=== PATIENT | female | born 1965 | race Caucasian/White ===

== ENCOUNTER 2019-01-26 07:31 | Emergency (ER) | payer BC ==
--- NOTE | 2019-01-26 07:58 | EDM.PDOC ---
ED HPI GENERAL MEDICAL PROBLEM - General Chief Complaint: Abdominal Pain Stated Complaint: VOMITING CANER PATIENT Time Seen by Provider: 01/26/19 07:31 Source of Information: Reports: Patient, EMS, Family History Limitations: Reports: No Limitations - History of Present Illness INITIAL COMMENTS - FREE TEXT/NARRATIVE: 53-year-old female with metastatic pancreatic cancer who is here visiting for the weekend and developed intense nausea and vomiting and increased abdominal pain overnight. She was doing okay until 2 AM when she woke up with pain in intense vomiting. She called the ambulance this morning and arrived at 7:30 AM. No fevers or chills, denies shortness of breath, no abdominal distention. She has had periods of pain similar to this in the past but not as much nausea and vomiting. She is scheduled to have a trial treatment protocol at [facility] next week. She is also scheduled for a nerve block for pain control at [facility] in 3 days. Bowels are moving. No urinary symptoms. Onset: Sudden (Symptoms escalated rather suddenly 6 hours ago) Duration: Hour(s): (6 hours) Location: Reports: Abdomen Quality: Reports: Sharp, Stabbing Worsens with: Reports: Other (Vomiting), Movement Associated Symptoms: Reports: Loss of Appetite, Nausea/Vomiting, Weakness. Denies: Chest Pain, Cough, Diaphoresis, Fever/Chills, Shortness of Breath Treatments COMMERCIAL CENSUS TAKER: Reports: Other Medication(s) Other Treatments COMMERCIAL CENSUS TAKER: Zofran 4 mg Fentenny 50mg per EMS Abdominal Pain Score (Numeric/FACES): 5 - Related Data Allergies Allergy/AdvReac Type Severity Reaction Status Date / Time Penicillins Allergy Rash Verified 01/26/19 07:37 Home Meds: Home Meds Hydrocodone/Acetaminophen [Hydrocodon-Acetaminophen 5-325] 1 tab PO Q4H PRN [History] Ondansetron [Zofran ODT] 1 tab PO Q6H PRN 01/26/19 [History] PARoxetine [Paxil] 40 mg PO DAILY 01/26/19 [History] Zolpidem Tartrate [Ambien] 10 mg PO BEDTIME PRN 01/26/19 [History] Past Medical History HEENT History: Reports: Impaired Vision 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 Denies: Fever HEENT: Reports: No Symptoms Respiratory: Denies: Shortness of Breath Cardiovascular: Denies: Chest Pain GI/Abdominal: Reports: Abdominal Pain, Decreased Appetite, Nausea, Vomiting. Denies: Constipation, Diarrhea : Reports: No Symptoms Skin: Reports: No Symptoms Neurological: Reports: Weakness. Denies: Headache ED EXAM, GENERAL - Physical Exam Exam: See Below Exam Limited By: No Limitations General Appearance: Alert, Mild Distress (Patient is very uncomfortable, received 50 g of fentanyl and 4 mg of Zofran in route which helped somewhat) Eye Exam: Bilateral Eye: Normal Inspection (Good hydration, no jaundice) Respiratory/Chest: No Respiratory Distress, Lungs Clear Cardiovascular: Regular Rate, Rhythm. No: Tachycardia GI/Abdominal: Normal Bowel Sounds, Tender (Diffusely tender to palpation with mild guarding, no distention) Extremities: Normal Inspection. No: Pedal Edema Neurological: Alert, Oriented Psychiatric: Depressed Mood, Flat Affect Skin Exam: Warm, Dry Course - Vital Signs Last Recorded V/S: Last Vital Signs Temp 96.0 F 01/26/19 07:47 Pulse 74 01/26/19 07:47 Resp 17 01/26/19 07:47 BP 136/76 01/26/19 08:24 Pulse Ox 100 01/26/19 07:47 - Orders/Labs/Meds Meds: Medications Discontinued Medications Generic Name Dose Route Start Last Admin Trade Name Freq PRN Reason Stop Dose Admin Fentanyl 100 mcg 01/26/19 07:46 01/26/19 08:01 Sublimaze IVPUSH 01/26/19 07:47 100 mcg ONETIME ONE Administration Lactated Ringer's 1,000 mls @ 500 mls/hr 01/26/19 08:15 01/26/19 08:11 Ringers, Lactated IV 500 mls/hr ASDIRECTED [place] Administration Ondansetron HCl 4 mg 01/26/19 07:46 01/26/19 08:00 Zofran IVPUSH 01/26/19 07:47 4 mg ONETIME ONE Administration - Re-Assessments/Exams Free Text/Narrative Re-Assessment/Exam: 01/26/19 08:04 Fluids were continued, the patient was given an additional 100 g of fentanyl and 4 mg of IV Zofran. The arrived and was anxious to get her to [place] where her oncologist and primary physicians are. I talked to Dr. Fuentes in the emergency room, he kindly accepted transfer of the patient without any further workup at this time. She is physically stable, just very uncomfortable. Departure - Departure Time of Disposition: 09:29 Disposition: DC/Tfer to Other Clinical Impression: Pancreatic cancer metastasized to liver Nausea and vomiting Qualifiers: Vomiting type: bilious vomiting Qualified Code(s): R11.14 - Bilious vomiting Abdominal pain Qualifiers: Abdominal location: generalized Qualified Code(s): R10.84 - Generalized abdominal pain - Discharge Information Referrals: Jasmin Peters MD [Primary Care Provider] - Forms: ED Department Discharge Care Plan Goals: Patient will be transferred by ambulance to [facility] for gastroenterology , oncology evaluation, symptom control and further workup if needed. Patient and are in agreement with the plan.
[2019-01-26] MEDS: Ondansetron 4 MG/2 ML SDV IVPUSH ONE (08:00)
[2019-01-26] MEDS: fentaNYL 100 MCG/2 ML SDV IVPUSH ONE (08:01)
[2019-01-26] MEDS: Lactated Ringers 1,000 ML IV SCH (08:11)
== END 2019-01-26 09:29 | disposition other institution (70) ==
LOC: JP.ED 07:31
DX: C22.8 Malignant neoplasm of liver, primary, unspecified as to type (principal); C78.7 Secondary malignant neoplasm of liver and intrahepatic bile duct; R11.14 Bilious vomiting; Z88.0 Allergy status to penicillin
CPT/HCPCS: 96361; 96374; 96375; 99284; J2405; J3010; J7120

== ENCOUNTER 2019-01-31 09:05 | Emergency (ER) | payer BC ==
[2019-01-31] MEDS ORDERED: fentaNYL 100 MCG/2 ML SDV IVPUSH ONE (09:38)
[2019-01-31] MEDS ORDERED: Ketamine 500 MG/5 ML MDV IV ONE (09:39)
[2019-01-31] MEDS ORDERED: Sodium Chloride 0.9% 10 ML Syringe FLUSH PRN (09:39)
--- NOTE | 2019-01-31 09:42 | EDM.PDOC ---
ED HPI GENERAL MEDICAL PROBLEM - General Chief Complaint: Abdominal Pain Stated Complaint: cancer patient Time Seen by Provider: 01/31/19 09:21 Source of Information: Reports: Patient, Family, Old Records, RN Notes Reviewed History Limitations: Reports: No Limitations - History of Present Illness INITIAL COMMENTS - FREE TEXT/NARRATIVE: 53-year-old female presents emergency department today complaint of abdominal pain, she is known history of pancreatic cancer with metastases to the liver has been using hydrocodone for pain control unfortunately she had reached the max dose of the 7.5/325 was in the emergency department on January 26 for nausea vomiting abdominal pain was transferred to [place] for further evaluation. Per her oncologist she was set up for nerve block with interventional radiology which is scheduled for February 02 pain medication was switched to fentanyl patch 25 g in combination with 2 mg of Dilaudid Q4 hours. However as she feels the pain medication that she is currently on is not providing good relief for her. Was given fentanyl IV in the emergency department last visit which provided good relief. States her nausea is in good control no shortness of breath or chest pain. 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 chemo since May, now completed since few weeks ago. Plans to begin trial treatment through [facility] next week. - Infectious Disease History Infectious Disease History: Reports: Chicken Pox - Past Surgical History HEENT Surgical History: Reports: None GI Surgical History: Reports: Colonoscopy, Other (See Below) Other GI Surgeries/Procedures: pancreatic CA with mets to liver Apr 2018 Social & Family History - Tobacco Use Smoking Status *Q: Current Every Day Smoker Years of Tobacco use: 30 Packs/Tins Daily: 0.5 - Caffeine Use Caffeine Use: Reports: Coffee - Recreational Drug Use Recreational Drug Use: No ED ROS GENERAL - Review of Systems Review Of Systems: See Below Constitutional: Reports: Fatigue. Denies: Fever, Chills HEENT: Reports: No Symptoms Respiratory: Reports: No Symptoms Cardiovascular: Reports: No Symptoms GI/Abdominal: Reports: Abdominal Pain. Denies: Nausea, Vomiting : Reports: No Symptoms ED EXAM, GENERAL - Physical Exam Exam: See Below Exam Limited By: No Limitations General Appearance: Alert, WD/WN, No Apparent Distress Respiratory/Chest: No Respiratory Distress GI/Abdominal: Soft, Tender (Generalized tenderness) Course - Vital Signs Last Recorded V/S: Last Vital Signs Temp 96.4 F 01/31/19 09:26 Pulse 88 01/31/19 09:26 Resp 16 01/31/19 10:52 BP 145/77 H 01/31/19 10:52 Pulse Ox 94 L 01/31/19 10:52 - Orders/Labs/Meds Orders: Active Orders 24 hr Category Date Time Status Peripheral IV Care [RC] . DIRECTED Care 01/31/19 09:39 Active Sodium Chloride 0.9% [Saline Flush] Med 01/31/19 09:39 Active 10 ml FLUSH ASDIRECTED PRN Peripheral IV Insertion Adult [OM.PC] Urgent Oth 01/31/19 09:39 Ordered Medication Orders Sodium Chloride (Saline Flush) 10 ml FLUSH ASDIRECTED PRN PRN Reason: Keep Vein Open Last Admin: 01/31/19 09:51 Dose: 10 ml Meds: Medications Generic Name Dose Route Start Last Admin Trade Name Freq PRN Reason Stop Dose Admin Sodium Chloride 10 ml 01/31/19 09:39 01/31/19 09:51 Saline Flush FLUSH 10 ml ASDIRECTED PRN Administration Keep Vein Open Discontinued Medications Generic Name Dose Route Start Last Admin Trade Name Freq PRN Reason Stop Dose Admin Fentanyl 100 mcg 01/31/19 09:38 01/31/19 09:51 Sublimaze IVPUSH 01/31/19 09:39 100 mcg ONETIME ONE Administration Ketamine HCl 20 mg 01/31/19 09:39 01/31/19 09:57 Ketalar IV 01/31/19 09:40 20 mg ONETIME ONE Administration Lorazepam 0.5 mg 01/31/19 10:15 01/31/19 10:34 Ativan IVPUSH 01/31/19 10:16 0.5 mg ONETIME ONE Administration Departure - Departure Time of Disposition: 11:03 Disposition: Home, Self-Care 01 Condition: Poor Clinical Impression: Pancreatic cancer metastasized to liver Abdominal pain Qualifiers: Abdominal location: generalized Qualified Code(s): R10.84 - Generalized abdominal pain - Discharge Information Referrals: PCP,None [Primary Care Provider] - Forms: ED Department Discharge Additional Instructions: Continue with the fentanyl patch, stop the Dilaudid for now, start the hydrocodone 10/325 one tablet every 6 hours as needed follow-up with your interventional radiologist on Saturday, call or return to the emergency department worsening of symptoms - My Orders Last 24 Hours: My Active Orders 01/31/19 09:39 Peripheral IV Care [RC] . DIRECTED Sodium Chloride 0.9% [Saline Flush] 10 ml FLUSH ASDIRECTED PRN Peripheral IV Insertion Adult [OM.PC] Urgent - Assessment/Plan Last 24 Hours: My Active Orders 01/31/19 09:39 Peripheral IV Care [RC] . DIRECTED Sodium Chloride 0.9% [Saline Flush] 10 ml FLUSH ASDIRECTED PRN Peripheral IV Insertion Adult [OM.PC] Urgent Plan: Assessment Acuity = acute Site and laterality = pancreatic cancer with metastases Etiology = unknown Manifestations = abdominal pain, nausea vomiting Location of injury = Home Lab values = none Plan Had good improvement with pain relief 100 g fentanyl 20 mg ketamine as well as 0.5 mg Ativan all IV, plan is to stop the Dilaudid continue with the fentanyl patch switched to the hydrocodone 10/325 one tablet every 6 hours as needed total #20 she'll follow up with interventional radiology on Saturday for nerve block This note was dictated using [employer] voice recognition software please call with any questions on syntax or grammar.
[2019-01-31] MEDS ORDERED: LORazepam 2 MG/ML SDV IVPUSH ONE (10:15)
== END 2019-01-31 11:20 | disposition home or self-care (01) ==
LOC: JP.ED 09:05
DX: C25.9 Malignant neoplasm of pancreas, unspecified (principal); C78.7 Secondary malignant neoplasm of liver and intrahepatic bile duct; F41.9 Anxiety disorder, unspecified; F32.9 Major depressive disorder, single episode, unspecified; F17.210 Nicotine dependence, cigarettes, uncomplicated; Z88.0 Allergy status to penicillin; Z79.899 Other long term (current) drug therapy
CPT/HCPCS: 96374; 96375; 99283; J2060; J3010

== ENCOUNTER 2019-03-15 00:25 | Emergency (ER) | payer BC ==
--- NOTE | 2019-03-15 00:40 | EDM.PDOC ---
ED HPI GENERAL MEDICAL PROBLEM - General Chief Complaint: General Stated Complaint: THROWING UP Time Seen by Provider: 03/15/19 00:40 Source of Information: Reports: Patient History Limitations: Reports: No Limitations - History of Present Illness INITIAL COMMENTS - FREE TEXT/NARRATIVE: pt has stage4 pancreatic ca. She has been vomiting all afternoon. She was not able to get her pain meds in and hold them down this pm. Onset: Today Duration: Hour(s): Location: Reports: Abdomen, Other (pt has known pancreatic ca. ) Quality: Reports: Sharp Associated Symptoms: Reports: Nausea/Vomiting, Other ( severe pain. 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 chemo since May, now completed since few weeks ago. Plans to begin trial treatment through [facility] next week. - Infectious Disease History Infectious Disease History: Reports: Chicken Pox - Past Surgical History HEENT Surgical History: Reports: None GI Surgical History: Reports: Colonoscopy, Other (See Below) Other GI Surgeries/Procedures: pancreatic CA with mets to liver Apr 2018 Social & Family History - Caffeine Use Caffeine Use: Reports: Coffee ED ROS GENERAL - Review of Systems Review Of Systems: See Below Constitutional: Reports: Weakness, Other ( severe pain) HEENT: Reports: No Symptoms Respiratory: Reports: No Symptoms Cardiovascular: Reports: No Symptoms Endocrine: Reports: No Symptoms GI/Abdominal: Reports: Abdominal Pain, Other (history of pancreatic ca. ) : Reports: No Symptoms Musculoskeletal: Reports: No Symptoms Skin: Reports: No Symptoms Neurological: Reports: No Symptoms Psychiatric: Reports: Anxiety ED EXAM, GENERAL - Physical Exam Exam: See Below Free Text/Narrative:: pt arrived with severe pain. She has not been able to hold her oral morphine down. She has not eaten anything for the past 2 days. [place] with her family. After some discussion with her and her it was noted that she was on hospice. They did not call hospice prior to coming to the ER. She had lab work ordered and done before I was aware that she was a hospice pt. Exam Limited By: No Limitations General Appearance: Alert, Anxious, Severe Distress, Other (pt has stage 4 pancreatic CA, ) Ears: Normal TMs Nose: Normal Inspection Throat/Mouth: Normal Inspection Head: Atraumatic Neck: Normal Inspection Respiratory/Chest: No Respiratory Distress Cardiovascular: Regular Rate, Rhythm GI/Abdominal: Other ( tender in the epigastric and mid abdoman. She is not distended. ) (Female) Exam: Deferred Rectal (Female) Exam: Deferred Back Exam: Normal Inspection Extremities: Normal Inspection Neurological: Alert, Oriented, Normal Cognition Psychiatric: Anxious, Other (pt is very uncomfortable. ) Course - Vital Signs Last Recorded V/S: Last Vital Signs Temp 35.6 C 03/15/19 00:43 Pulse 113 H 03/15/19 00:43 Resp 18 03/15/19 00:43 BP 118/86 03/15/19 00:43 Pulse Ox 93 L 03/15/19 00:43 - Orders/Labs/Meds Labs: Laboratory Tests 03/15/19 03/15/19 03/15/19 Range/Units 00:52 00:52 00:52 WBC 9.9 (4.5-11.0) K/uL RBC 5.28 (3.30-5.50) M/uL Hgb 16.8 H (12.0-15.0) g/dL Hct 50.5 H (36.0-48.0) % MCV 96 (80-98) fL MCH 32 H (27-31) pg MCHC 33 (32-36) % Plt Count 230 (150-400) K/uL Neut % (Auto) 77 H (36-66) % Lymph % (Auto) 14 L (24-44) % [place] % (Auto) 8 H (2-6) % Eos % (Auto) 0 L (2-4) % Baso % (Auto) 1 (0-1) % Sodium 131 L (140-148) mmol/L Potassium 4.2 (3.6-5.2) mmol/L Chloride 91 L (100-108) mmol/L Carbon Dioxide 21 (21-32) mmol/L Anion Gap 23.2 H (5.0-14.0) mmol/L BUN 17 (7-18) mg/dL Creatinine 0.7 (0.6-1.0) mg/dL Est Cr Clr Drug Dosing TNP Estimated GFR (MDRD) > 60 (>60) Glucose 114 H (74-106) mg/dL Calcium 9.1 (8.5-10.1) mg/dL Total Bilirubin 2.3 H (0.2-1.0) mg/dL AST 55 H (15-37) U/L ALT 61 (12-78) U/L Alkaline Phosphatase 625 H (46-116) U/L Total Protein 7.7 (6.4-8.2) g/dL Albumin 3.0 L (3.4-5.0) g/dL Globulin 4.7 H (2.3-3.5) g/dL Albumin/Globulin Ratio 0.6 L (1.2-2.2) Amylase 15 L (25-115) U/L Lipase 62 L (73-393) U/L Meds: Medications Discontinued Medications Generic Name Dose Route Start Last Admin Trade Name Freq PRN Reason Stop Dose Admin Hydromorphone HCl 1 mg 03/15/19 01:37 03/15/19 01:45 Dilaudid IVPUSH 03/15/19 01:38 1 mg ONETIME ONE Administration Hydromorphone HCl 1 mg 03/15/19 02:20 03/15/19 03:02 Dilaudid IVPUSH 03/15/19 02:21 1 mg ONETIME ONE Administration Sodium Chloride 1,000 mls @ 999 mls/hr 03/15/19 01:00 03/15/19 01:15 Normal Saline IV 999 mls/hr ASDIRECTED [place] Administration Sodium Chloride 1,000 mls @ 999 mls/hr 03/15/19 01:45 03/15/19 02:08 Normal Saline IV 999 mls/hr ASDIRECTED [place] Administration Morphine Sulfate 4 mg 03/15/19 00:52 03/15/19 01:15 Morphine IVPUSH 03/15/19 00:53 4 mg ONETIME ONE Administration Prochlorperazine Edisylate 10 mg 03/15/19 00:48 03/15/19 01:19 Compazine IVPUSH 03/15/19 00:49 10 mg ONETIME ONE Administration Prochlorperazine Maleate 25 mg 03/15/19 02:10 03/15/19 03:02 Compro RECTAL 03/15/19 02:11 25 mg ONETIME ONE Administration - Re-Assessments/Exams Free Text/Narrative Re-Assessment/Exam: 03/15/19 02:14 pt was given 2 liters of fluid. She was given iv compazine which helped the nausea. She did not get relief from the iv 4 mg of morphine. She was given 1 mg of dilaudid and did get relief from that. [facility] was called and she is in the palitive portion and not actual hospice. Departure - Departure Time of Disposition: 03:15 Disposition: Home, Self-Care 01 Condition: Fair Clinical Impression: Pancreatic cancer metastasized to liver, Dehydration, Inadequate pain control - Discharge Information Instructions: Pancreatic Cancer, Dehydration, Adult Referrals: Jasmin Peters MD [Primary Care Provider] - Forms: ED Department Discharge Care Plan Goals: compazine 25 mg q6h prn for nausea, use the Ms contents every 12 hours. If further problems call if further problems. Sepsis Event Note - Focused Exam Date Exam was Performed: 03/17/19 Time Exam was Performed: 07:22
[2019-03-15] MEDS ORDERED: Prochlorperazine 10 MG/2 ML SDV IVPUSH ONE (00:48)
[2019-03-15] MEDS ORDERED: Morphine 4 MG/ML Syringe IVPUSH ONE (00:52)
[2019-03-15] MEDS ORDERED: Sodium Chloride 0.9% 1,000 ML IV SCH ×2 (01:00→01:45)
[2019-03-15] MEDS ORDERED: HYDROmorphone 1 MG/ML Syringe IVPUSH ONE ×2 (01:37→02:20)
[2019-03-15] MEDS ORDERED: Prochlorperazine 25 MG Supp RECTAL ONE (02:10)
== END 2019-03-15 03:15 | disposition home or self-care (01) ==
LOC: JP.ED 00:25
DX: C25.9 Malignant neoplasm of pancreas, unspecified (principal); C78.7 Secondary malignant neoplasm of liver and intrahepatic bile duct; E86.0 Dehydration; F32.9 Major depressive disorder, single episode, unspecified; Z88.0 Allergy status to penicillin
CPT/HCPCS: 36415; 80053; 82150; 83690; 85025; 96361; 96374; 96375; 96376; 99284; A9270; J0780; J1170; J2270; J7030

== ENCOUNTER 2019-03-20 10:54 | Emergency (ER) | payer BC ==
[2019-03-20] MEDS ORDERED: HYDROmorphone 1 MG/ML Syringe IVPUSH ONE (11:24)
[2019-03-20] MEDS ORDERED: MVI, Adult with Vitamin K 10 ML, Thiamine 100 MG, Folic Acid 1 MG, Magnesium Sulfate 3 ... IV SCH ×5 (11:30)
--- NOTE | 2019-03-20 12:20 | EDM.PDOC ---
ED HPI GENERAL MEDICAL PROBLEM - General Chief Complaint: General Stated Complaint: FLUIDS Time Seen by Provider: 03/20/19 11:20 Source of Information: Reports: Patient, Family History Limitations: Reports: No Limitations - History of Present Illness INITIAL COMMENTS - FREE TEXT/NARRATIVE: 53-year-old with metastatic pancreatic cancer, on hospice who has increased abdominal pain and weakness and arrives for fluids and pain control. She is not eating well. No fevers or chills, denies shortness of breath. She had a fairly normal bowel movement 2 days ago, no urinary symptoms. Onset: Unknown/Unsure Associated Symptoms: Reports: Loss of Appetite, Malaise, Weakness Generalized Pain Score (Numeric/FACES): 6 - Related Data Allergies Allergy/AdvReac Type Severity Reaction Status Date / Time Penicillins Allergy Rash Verified 03/20/19 11:11 Home Meds: Home Meds Ondansetron [Zofran ODT] 8 mg PO Q8H PRN 01/26/19 [History] PARoxetine [Paxil] 40 mg PO DAILY 01/26/19 [History] Zolpidem Tartrate [Ambien] 10 mg PO BEDTIME PRN 01/26/19 [History] HYDROmorphone HCl [Hydromorphone HCl] 4 mg PO Q6H 03/15/19 [History] Prochlorperazine [Compazine] 1 tab PO ASDIRECTED PRN 03/20/19 [History] Scopolamine 1 patch TOP ASDIRECTED 03/20/19 [History] dexAMETHasone [Dexamethasone] 1 tab PO Q6H 03/20/19 [History] Past Medical History HEENT History: Reports: Impaired Vision 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 chemo since May-January 04. - Infectious Disease History Infectious Disease History: Reports: Chicken Pox - Past Surgical History GI Surgical History: Reports: Colonoscopy, Other (See Below) Other GI Surgeries/Procedures: pancreatic CA with mets to liver Apr 2018 Social & Family History - Tobacco Use Smoking Status *Q: Light Tobacco Smoker Years of Tobacco use: 35 Packs/Tins Daily: 0.2 - Caffeine Use Caffeine Use: Reports: Coffee - Recreational Drug Use Recreational Drug Use: No ED ROS GENERAL - Review of Systems Review Of Systems: See Below Constitutional: Reports: Malaise, Weakness, Decreased Appetite. Denies: Fever, Chills HEENT: Denies: Vision Change Respiratory: Denies: Shortness of Breath Cardiovascular: Denies: Chest Pain GI/Abdominal: Reports: Abdominal Pain, Nausea. Denies: Diarrhea, Vomiting Neurological: Reports: Weakness. Denies: Headache ED EXAM, GENERAL - Physical Exam Exam: See Below Exam Limited By: No Limitations General Appearance: Alert, No Apparent Distress, Other (Patient looks tired and uncomfortable but not distressed) Head: Atraumatic Neck: Normal Inspection Respiratory/Chest: No Respiratory Distress, Lungs Clear Cardiovascular: Regular Rate, Rhythm GI/Abdominal: Soft, Tender (Some tenderness to palpation across the upper abdomen) Extremities: No: Pedal Edema Neurological: Alert Psychiatric: Flat Affect Course - Vital Signs Last Recorded V/S: Last Vital Signs Temp 97.2 F 03/20/19 11:10 Pulse 84 03/20/19 13:01 Resp 14 03/20/19 13:01 BP 127/89 03/20/19 13:01 Pulse Ox 95 03/20/19 13:01 - Orders/Labs/Meds Meds: Medications Discontinued Medications Generic Name Dose Route Start Last Admin Trade Name Freq PRN Reason Stop Dose Admin Hydromorphone HCl 1 mg 03/20/19 11:24 03/20/19 11:45 Dilaudid IVPUSH 03/20/19 11:25 1 mg ONETIME ONE Administration Multivitamins/Minerals 10 ml/ 1,017.2 mls @ 1,000 mls/hr 03/20/19 11:30 03/20 11:55 Thiamine HCl 100 mg/ Folic IV 1,000 mls/hr Acid 1 mg/ Magnesium Sulfate 3 ASDIRECTED [place] Administration gm/ Sodium Chloride - Re-Assessments/Exams Free Text/Narrative Re-Assessment/Exam: 03/20/19 12:20 1 L banana bag was bolused, and the patient was given 1 mg of IV Dilaudid. Hospice was contacted to approve treatment. 03/20/19 12:55 Patient had some reasonable improvement after the fluids and Dilaudid and was asking to be discharged. She will be released back to the care of hospice. Departure - Departure Time of Disposition: 13:27 Disposition: Home, Self-Care Clinical Impression: Pancreatic cancer metastasized to liver, Dehydration, Inadequate pain control - Discharge Information Instructions: Dehydration, Adult Referrals: PCP,None [Primary Care Provider] - Forms: ED Department Discharge Care Plan Goals: Resume your regular medications, try to stay hydrated and increase activity as tolerated. Sepsis Event Note - Evaluation Sepsis Screening Result: No Definite Risk - Focused Exam Vital Signs: Vital Signs Temp Pulse Resp BP Pulse Ox 03/20/19 13:01 84 14 127/89 95 03/20/19 11:44 84 14 138/96 H 93 L 03/20/19 11:10 97.2 F 96 16 160/102 H 94 L 03/20/19 11:06 97.2 F 96 16 160/102 H 94 L Date Exam was Performed: 03/20/19 Time Exam was Performed: 15:40
== END 2019-03-20 13:27 | disposition home or self-care (01) ==
LOC: JP.ED 10:54
DX: C25.9 Malignant neoplasm of pancreas, unspecified (principal); C78.7 Secondary malignant neoplasm of liver and intrahepatic bile duct; E86.0 Dehydration; F32.9 Major depressive disorder, single episode, unspecified; F17.210 Nicotine dependence, cigarettes, uncomplicated; Z79.899 Other long term (current) drug therapy; Z88.0 Allergy status to penicillin
CPT/HCPCS: 96365; 96375; 99284; J1170; J3411; J3475; J7030; J3490

== ENCOUNTER 2019-03-25 11:35 | Emergency (ER) | payer BC ==
[2019-03-25] MEDS ORDERED: HYDROmorphone 1 MG/ML Syringe IVPUSH ONE (11:44)
[2019-03-25] MEDS ORDERED: MVI, Adult with Vitamin K 10 ML, Thiamine 100 MG, Folic Acid 1 MG, Magnesium Sulfate 3 ... IV SCH ×5 (11:45)
--- NOTE | 2019-03-25 11:48 | EDM.PDOC ---
ED HPI GENERAL MEDICAL PROBLEM - General Chief Complaint: General Stated Complaint: DEHYDRATED Time Seen by Provider: 03/25/19 11:45 Source of Information: Reports: Patient History Limitations: Reports: No Limitations - History of Present Illness INITIAL COMMENTS - FREE TEXT/NARRATIVE: pt has a history of stage 4 pancreatic ca. She is feeling quite dehydrated. She is not getting much down but she has not been vomiting. She is not keepiong her pain meds down. She has a scopa;amine patch and that has been helping with the nausea. She is going to get admitted to hospice. Onset: Gradual Duration: Day(s): Location: Reports: Abdomen, Other (pt has pancreatic ca stage 4. ) Associated Symptoms: Reports: Weakness, Other ( dehydration. ) Abdominal Pain Score (Numeric/FACES): 6 - Related Data Allergies Allergy/AdvReac Type Severity Reaction Status Date / Time Penicillins Allergy Rash Verified 03/20/19 11:11 Home Meds: Home Meds Ondansetron [Zofran ODT] 8 mg PO Q8H PRN 01/26/19 [History] PARoxetine [Paxil] 40 mg PO DAILY 01/26/19 [History] Zolpidem Tartrate [Ambien] 10 mg PO BEDTIME PRN 01/26/19 [History] HYDROmorphone HCl [Hydromorphone HCl] 4 mg PO Q6H 03/15/19 [History] Prochlorperazine [Compazine] 1 tab PO ASDIRECTED PRN 03/20/19 [History] Scopolamine 1 patch TOP ASDIRECTED 03/20/19 [History] dexAMETHasone [Dexamethasone] 1 tab PO Q6H 03/20/19 [History] Past Medical History HEENT History: Reports: Impaired Vision [employer] History: Reports: Psychiatric History: Reports: Depression Oncologic (Cancer) History: Reports: Pancreatic, Other (See Below) Other Oncologic History: liver mets. chemo since May-January 04. - Infectious Disease History Infectious Disease History: Reports: Chicken Pox - Past Surgical History GI Surgical History: Reports: Colonoscopy, Other (See Below) Other GI Surgeries/Procedures: pancreatic CA with mets to liver Apr 2018 Social & Family History - Caffeine Use Caffeine Use: Reports: Coffee ED ROS GENERAL - Review of Systems Review Of Systems: See Below Constitutional: Reports: Weakness, Diaphoresis, Decreased Appetite, Other (pt has stage 4 pancreatic Ca) HEENT: Reports: No Symptoms Respiratory: Reports: No Symptoms Cardiovascular: Reports: No Symptoms Endocrine: Reports: No Symptoms GI/Abdominal: Reports: Abdominal Pain, Anorexia, Decreased Appetite : Reports: No Symptoms Skin: Reports: No Symptoms Neurological: Reports: No Symptoms ED EXAM, GENERAL - Physical Exam Exam: See Below Free Text/Narrative:: pt arrived she is trying to have a Lisbeth with her family. She is here for a bolus of fluid. She is doing ok with the nausea with the patch that she has. Exam Limited By: No Limitations General Appearance: Alert, Moderate Distress, Other (pt was given Iv Dilaudid) Ears: Normal TMs Nose: Normal Inspection Throat/Mouth: Other ( dry mucous membranes) Head: Atraumatic Neck: Normal Inspection Respiratory/Chest: No Respiratory Distress Cardiovascular: Regular Rate, Rhythm GI/Abdominal: Other (pain in upper abdoman) (Female) Exam: Deferred Rectal (Female) Exam: Deferred Back Exam: Normal Inspection Extremities: Normal Inspection Neurological: Alert, Oriented, Normal Cognition Course - Vital Signs Last Recorded V/S: Last Vital Signs Temp 35.7 C 03/25/19 11:45 Pulse 95 03/25/19 11:45 Resp 16 03/25/19 11:45 BP 121/92 H 03/25/19 11:45 Pulse Ox 95 03/25/19 11:45 - Orders/Labs/Meds Meds: Medications Discontinued Medications Generic Name Dose Route Start Last Admin Trade Name Freq PRN Reason Stop Dose Admin Hydromorphone HCl 1 mg 03/25/19 11:44 03/25/19 11:52 Dilaudid IVPUSH 03/25/19 11:45 1 mg ONETIME ONE Administration Multivitamins/Minerals 10 ml/ 1,017.2 mls @ 500 mls/hr 03/25/19 12:15 12:07 Thiamine HCl 100 mg/ Folic IV 03/25/19 14:17 500 mls/hr Acid 1 mg/ Magnesium Sulfate 3 ONETIME ONE Administration gm/ Sodium Chloride - Re-Assessments/Exams Free Text/Narrative Re-Assessment/Exam: 03/25/19 13:28 pt was given a Bannana bag and Dilaudid 1 mg . She is feeling some better. Departure - Departure Time of Disposition: 13:55 Disposition: Home, Self-Care 01 Condition: Fair Clinical Impression: Dehydration, Pancreatic cancer - Discharge Information Instructions: Dehydration, Adult, [id number] Referrals: Jasmin Peters MD [Primary Care Provider] - Forms: ED Department Discharge Care Plan Goals: cont same Meds. Sepsis Event Note - Focused Exam Date Exam was Performed: 03/30/19 Time Exam was Performed: 08:05
[2019-03-25] MEDS ORDERED: MVI, Adult with Vitamin K 10 ML, Thiamine 100 MG, Folic Acid 1 MG, Magnesium Sulfate 3 ... IV ONE ×5 (12:15)
== END 2019-03-25 14:20 | disposition home or self-care (01) ==
LOC: JP.ED 11:35
DX: E86.0 Dehydration (principal); C25.9 Malignant neoplasm of pancreas, unspecified; F32.9 Major depressive disorder, single episode, unspecified; Z88.0 Allergy status to penicillin; Z79.899 Other long term (current) drug therapy
CPT/HCPCS: 96361; 96374; 99283; J1170; J3411; J3475; J7030; J3490